=== PATIENT | female | born 1980 | race Caucasian/White ===

== ENCOUNTER 2022-12-21 09:35 | Emergency (ER) | payer OTHER ==
[~2022-12-21] VITALS: Ht 165.1 cm; Wt 72.6 kg
[2022-12-21] VITALS (17 sets, daily range): BP systolic 116–139; BP diastolic 79–91
[2022-12-21] MEDS ORDERED: GABAPENTIN100 MG PO (09:53)
[2022-12-21] MEDS ORDERED: TRAZODONE50 MG PO (09:53)
[2022-12-21 10:10] LABS: BASO% 0.2 % (0-3); HEMOGLOBIN 12.8 g/dl (12.0-16.0); IMMATURE GRANULOCYTES 0.3 % (0.0-5.0); LYMPH% 8.3 % (15-41); MEAN CELL VOLUME 93.2 fL CALC (80.0-100.0); MEAN CORPUSCULAR HGB 29.1 pG CALC (26.0-32.0); MEAN CORPUSCULAR HGB CONC 31.2 g/dL CAL (32.0-36.0); MONO% 1.6 % (2-13); NEUT# 14.85 thou/uL (2.00-7.15); NEUT% 89.6 % (42-76); RED BLOOD COUNT 4.4 mill/uL (4.20-5.60); RED CELL DISTRI WIDTH 12.7 % (11.5-15.5)
[2022-12-21 10:21] LABS: ALBUMIN 4.8 g/dL (3.2-5.0); ALKALINE PHOSPHATASE 73 u/l (38-126); ANION GAP 15 (6-22 (CALC)); BILIRUBIN, TOTAL 0.3 mg/dL (0.02-1.3); BUN 16 mg/dL (7-17); BUN/CREATININE RATIO 25 (12-20 (CALC)); CARBON DIOXIDE 23 mmol/l (22-30); CHLORIDE 106 mmol/l (95-108); CREATININE 0.6 mg/dL (0.5-1.0); GFR FOR AFR.AMER. > 60 ML/MIN (>=60 (CALC)); GFR OTHER RACES > 60 ML/MIN (>=60 (CALC)); POTASSIUM 3.9 mmol/l (3.5-5.1); SGOT/AST 37 u/l (14-36); SODIUM 139 mmol/l (137-146)
== END 2022-12-21 13:50 | disposition home or self-care (01) | DRG 313 ==
LOC: ED 09:35
PROVIDERS: Family Medicine
DX: R07.9 Chest pain, unspecified (principal); J45.909 Unspecified asthma, uncomplicated

== ENCOUNTER 2024-07-11 08:05 | Emergency (ER) | payer SELFPAY ==
[~2024-07-11] VITALS: Ht 165.1 cm; Wt 78.0 kg
[~2024-07-11 08:05] MED LIST: GABAPENTIN100 MG PO; TRAZODONE50 MG PO
[2024-07-11 08:10] VITALS: BP 146/89
[2024-07-11] MEDS ORDERED: ASPIRIN 81 MG/TAB PO ONE (08:10)
[2024-07-11 08:30] VITALS: BP 137/91
[2024-07-11 08:46] LABS: BASO% 0.4 % (0-3); HEMATOCRIT 38.1 % (37.0-47.0); IMMATURE GRANULOCYTES 0.1 % (0.0-5.0); MEAN CELL VOLUME 88.8 fL CALC (80.0-100.0); MEAN CORPUSCULAR HGB CONC 31.5 g/dL CAL (32.0-36.0); MONO% 7.7 % (2-13); NEUT# 7.03 thou/uL (2.00-7.15); NEUT% 69.8 % (42-76); RED BLOOD COUNT 4.29 mill/uL (4.20-5.60)
[2024-07-11 08:59] LABS: ALBUMIN 4.3 g/dL (3.2-5.0); ALKALINE PHOSPHATASE 64 u/l (38-126); ANION GAP 7 (6-22 (CALC)); BUN 10 mg/dL (7-17); BUN/CREATININE RATIO 15 (12-20 (CALC)); CARBON DIOXIDE 25 mmol/l (22-30); CHLORIDE 112 mmol/l (95-108); CREATININE 0.7 mg/dL (0.5-1.0); ESTIMATED GFR 111 ML/MIN (>=90 (CALC)); POTASSIUM 3.8 mmol/l (3.5-5.1); SGOT/AST 42 u/l (14-36); SODIUM 139 mmol/l (137-146); TOTAL PROTEIN 7.4 g/dL (6.3-8.2)
[2024-07-11 09:00] VITALS: BP 138/88
[2024-07-11 09:00] LABS: BILIRUBIN, TOTAL 0.5 mg/dL (0.02-1.3)
[2024-07-11] MEDS ORDERED: ZPAK PO (09:21)
[2024-07-11 09:30] VITALS: BP 138/95
[2024-07-11 09:39] VITALS: BP 138/95
== END 2024-07-11 09:39 | disposition home or self-care (01) | DRG 153 ==
LOC: ED 08:05
PROVIDERS: Family Medicine
DX: J02.0 Streptococcal pharyngitis (principal); J45.909 Unspecified asthma, uncomplicated; Z20.822 Contact with and (suspected) exposure to COVID-19